=== PATIENT | male | born 1950 | race Caucasian/White ===

== ENCOUNTER 2017-09-13 20:44 | Emergency (ER) | payer OTHER ==
[~2017-09-13] VITALS: Ht 177.8 cm; Wt 113.4 kg
[2017-09-13] MEDS ORDERED: METFORMIN HCL500 MG PO (20:59)
[2017-09-13] MEDS ORDERED: GLUCOTROL5 MG PO (20:59)
[2017-09-13] MEDS ORDERED: BLOOD PRESSURE PILL (20:59)
[2017-09-13] MEDS ORDERED: ASPIR 8181 MG PO (20:59)
[2017-09-13] MEDS ORDERED: CHOLESTEROL PILL (20:59)
[2017-09-13] MEDS ORDERED: NORFLEX100 MG PO (22:15)
[2017-09-13] MEDS ORDERED: ULTRAM 50MG TAB50 MG PO (22:15)
[2017-09-13 22:27] VITALS: BP 139/78
== END 2017-09-13 22:28 | disposition home or self-care (01) ==
LOC: M.ERS 20:44
DX: R51 Headache (principal); I10 Essential (primary) hypertension; E11.9 Type 2 diabetes mellitus without complications; V89.0XXA Person injured in unspecified motor-vehicle accident, nontraffic, initial encounter; Y93.89 Activity, other specified; Y92.89 Other specified places as the place of occurrence of the external cause; Y99.8 Other external cause status

== ENCOUNTER 2018-02-23 07:44 | Emergency (ER) | payer OTHER ==
[~2018-02-23] VITALS: Ht 172.7 cm; Wt 102.1 kg
[~2018-02-23 07:44] MED LIST: ASPIR 8181 MG PO; BLOOD PRESSURE PILL; CHOLESTEROL PILL; GLUCOTROL5 MG PO; METFORMIN HCL500 MG PO; NORFLEX100 MG PO; ULTRAM 50MG TAB50 MG PO
[2018-02-23] MEDS ORDERED: PIOGLITAZONE15 MG (07:56)
[2018-02-23] MEDS ORDERED: ZETIA10 MG PO (07:56)
[2018-02-23] MEDS ORDERED: ZOCOR20 MG PO (07:56)
[2018-02-23] MEDS ORDERED: CENTRUM SILVER1 EAC2 PO (07:57)
[2018-02-23] MEDS ORDERED: VALSARTAN-HCTZ1 EACH PO (07:57)
[2018-02-23] MEDS ORDERED: HYDROCODONE-AP1 EAC6 PO (08:56)
[2018-02-23 09:11] VITALS: BP 148/82
== END 2018-02-23 09:11 | disposition home or self-care (01) ==
LOC: M.ERS 07:44
DX: L02.212 Cutaneous abscess of back [any part, except buttock and flank] (principal); I10 Essential (primary) hypertension; E11.9 Type 2 diabetes mellitus without complications

== ENCOUNTER → 2021-01-04 | Outpatient (CLI) | payer OTHER ==
[~2021-01-04] MED LIST changes: +CENTRUM SILVER1 EAC2 PO; +HYDROCODONE-AP1 EAC6 PO; +PIOGLITAZONE15 MG; +VALSARTAN-HCTZ1 EACH PO; +ZETIA10 MG PO; +ZOCOR20 MG PO
== END ==
LOC: M.ULTRA 06:59
PROVIDERS: ATTEND Nurse Practitioner Family
DX: Z00.00 Encounter for general adult medical examination without abnormal findings (principal)